=== PATIENT | female | born 1955 | race Caucasian/White ===

== ENCOUNTER 2022-08-28 08:32 | Day surgery (SDC) | payer MEDICARE, SELFPAY ==
[2022-08-20 09:47] VITALS: BMI 34.9
[2022-08-28] VITALS (13 sets, daily range): BP systolic 88–150; BP diastolic 47–78; PULSE 85–104; RESP 12–22; TEMP 36.2–36.7; O2SAT 93–100; BMI 34.8
--- NOTE | 2022-08-28 06:00 | DI.RAD.S_ITS ---
PROCEDURE: XR PELVIS 1-2V INDICATIONS: TRINI TECHNIQUE: Intra-operative view of the pelvis and hip acquired. COMPARISON: None. FINDINGS: Bones: Intraoperative devices prior to placement of arthroplasty prostheses are in expected positions. No fractures or suspicious bony lesions. Soft tissues: Overlying surgical retractors are present, along with other intraoperative changes. IMPRESSION: Intraoperative imaging obtained during right hip arthroplasty placement. Dictated by: Gisele West M.D. on 08/28/2022 at 14:00 Transcribed by: CLAUDIA on 08/28/2022 at 14:00 Approved by: Gisele West M.D. on 08/28/2022 at 16:27
[2022-08-28] MEDS: VANCOMYCIN 1,000 MG/200 ML PIGGYBACK 200 MG IV (09:05)
[2022-08-28] MEDS: ACETAMINOPHEN 325 MG TABLET 975 MG PO (09:06)
[2022-08-28] MEDS: CELECOXIB 200 MG CAPSULE PO (09:07)
[2022-08-28] MEDS: PREGABALIN 75 MG CAPSULE PO (09:07)
[2022-08-28] MEDS: LACTATED RINGERS 1,000 ML 42 ML IV ×2 (09:31→11:56)
--- NOTE | 2022-08-28 09:46 | PM.PREOP ---
Pre-operative Note COVID-19 COVID-19 status: Negative Interval Note History & Physical reviewed/Exam performed by Physician: Yes Changes to H&P: No
[2022-08-28 09:48] LABS: COVID19 -Nasal RAPID Negative (Negative)
[2022-08-28] MEDS: TRANEXAMIC ACID 1,000 MG VIAL 2000 MG INJ ×2 (10:28→12:33)
[2022-08-28] MEDS: CEFAZOLIN 2 GM/100 ML PREMIX 100 ML IV ×2 (10:28→18:04)
[2022-08-28] MEDS: HYDROCORTISONE 100 MG/2 ML VIAL IV (10:32)
--- NOTE | 2022-08-28 10:43 | SUR.OPER ---
Lateral on padded OR bed. Gel axillary roll. Arms secured on padded armboard with pillow supporting top arm. Padded hip positioner braces x4 - anterior and posterior chest and pelvis. Additional gel pad used anterior pelvis. Gel pad under bottom leg from knee to foot and secured with tape over sheet.
[2022-08-28] MEDS: BUPIVACAINE 0.25% (PF) 60 ML, EPINEPHrine 0.3 MG INJ (10:52)
[2022-08-28] MEDS: BUPIVACAINE LIPOSOME 266 MG/20 ML VIAL INJ (10:53)
[2022-08-28] MEDS: SODIUM CHLORIDE IRRIG SOLUTION 250 ML, POVIDONE-IODINE SPONGE STICKS 1 APPLIC IRR (10:55)
[2022-08-28] MEDS: EPINEPHrine 1 MG/ML IRR (11:03)
--- NOTE | 2022-08-28 13:00 | DI.RAD.S_ITS ---
PROCEDURE: XR HIP W PEL IF DONE RT 2V INDICATIONS: POST OP RT HIP TECHNIQUE: AP pelvis and lateral view of the right hip acquired. COMPARISON: [facility], [place], XR PELVIS 1-2V, 08/28/2022, 11:23. [facility] [place], [place], XR PELVIS 1 OR 2 VIEWS, 08/15/2022, 11:51. FINDINGS: Bones: Patient is status post right hip arthroplasty, with hardware components in expected positions. The hip joint appears congruent. The visualized bony structures appear intact. Prior left hip arthroplasty appears stable. Clips in the pelvis. Soft tissues: Overlying postoperative changes are noted. No suspicious soft tissue densities. IMPRESSION: Expected appearance of the right total hip arthroplasty. Dictated by: Sanjay Dobbs M.D. on 08/28/2022 at 13:59 Approved by: Sanjay Dobbs M.D. on 08/28/2022 at 14:00
[2022-08-28] MEDS: ONDANSETRON 4 MG/2 ML INJ IV ×2 (13:21→15:51)
[2022-08-28] MEDS: OXYCODONE IR 5 MG TABLET PO ×2 (13:21→16:47)
--- NOTE | 2022-08-28 13:39 | PM.OP.1 ---
Operative Date/Time/Diagnoses Date of procedure: 08/28/22 Time of procedure: 10:45 Pre-op diagnosis: Severe right hip osteoarthritis, history of prior extensive lumbar spine fusion Post-op diagnosis: same Procedure & Clinicians Procedure: Right total hip arthroplasty posterior approach Same procedure as scheduled: Yes Indications: The patient has had progressively worsening right hip pain with radiographic changes consistent with arthritis. Non-operative management has failed and the patient has requested total hip replacement. The risks, benefits and alternatives to surgery were discussed with the patient prior to proceeding. Risks discussed included, but were not limited to, failure to relieve pain, leg length discrepancy, dislocation, stiffness, infection, nerve damage, deep venous thrombosis, pulmonary embolism, stroke, coma, heart attack, permanent paralysis and , as well as the potential need for eventual revision of the prosthetic. Surgeon: Loren Tomlinson Cracker Dough Mixer: Connie Renner Anesthesia Type: General and Spinal Operative Notes Findings: Severe right hip osteoarthritis, adequate stability, soft bone Closure Type: primary Specimen(s): none sent Prosthetic devices, grafts, tissues, transplants, or devices: Tomlinson and nephew size 48 R3 cup, size 10 synergy standard offset, 32 x 48 mm neutral poly liner, 32 x -3 Oxinium head,one 6.5 mm screw Estimated Blood Loss (mL): 250 Blood products transfused: none Procedure in detail: The patient was seen in the pre-operative area, where the patient identified the right hip as the operative site and this was marked with my initials. The patient received pre-operative antibiotics and was taken to the operating room and placed on the operative table in the left lateral decubitus position after satisfactory anesthesia. A fulling mill operator out was performed. The right leg was prepared from the ankle to the iliac crest with ChloroPrep in the usual fashion and draped through sterile drapes. A PA was used during the procedure for intraoperative positioning of the leg and in order to allow adequate visualization of the leg and safe implantation of the components as well as hemostasis. The hip was approached through an approximately 20 cm incision centered over the greater trochanter and curving gently posteriorly as it went proximally. This was carried sharply to the fascia jimbo, which was divided and retracted with a self retaining retractor. The trochanteric bursa was excised with care being taken to avoid the sciatic nerve, which was identified and protected throughout the case. The short external rotators were incised and the capsulomuscular flap was raised and tagged for later repair. The hip was dislocated, and a femoral neck osteotomy performed approximately 15 mm above the lesser trochanter. Retractors were placed around the femur. The canal was opened with a box cutting osteotome, followed by a T handled reamer and a lateralizing reamer. The chili pepper broach was then used, followed by sequential broaching until there was good stability of the broach in the femur. With stress it was clear that there was not adequate stability of the size 2 broach and I felt it was better to go with Synergy technology. It was reamed with a Reamer and then sequentially broached up to a size 10. Retractors were placed to expose the acetabulum. The labrum and central soft tissues were removed. Reaming was performed initially going up in 2 mm increments, then 1 mm increments until good bite was obtained with an odd sized reamer. The cup 1 mm larger than the last reamer was then inserted using the appropriate anteversion guides. It was further stabilized with a screw. She did have pretty soft bone in her acetabulum. A trial neutral liner was placed. The broach was placed in the canal. A trial head and neck were then placed and the hip relocated and checked for leg length and stability. An intraoperative film confirmed the component position and no evidence of fracture. The patient was stable in the position of sleep, of squatting, and could be put through a range of motion with 45 degrees internal rotation without dislocation. At 90 degrees flexion, internal rotation to 70? was possible before dislocation. This was felt to be satisfactory and the appropriate components were opened, and the trials were removed. I considered doing a dual mobility liner because of her known spine fusion and chronic spine problems but her offset and leg length were better with a-3 head and she had such a small cup that her only dual mobility available would of been a 0 which was felt to be likely too much for her redding leg length and offset. The acetabular liner was impacted into position. The final stem was then impacted into the prepared femoral canal. A brief Betadine soak was performed while trialing with head options. The hip was meticulously irrigated with normal saline. Finally the femoral head was impacted onto the stem. The acetabulum was cleared of all material and the hip relocated one final time. The capsulomuscular flap was then repaired to the greater trochanter using the tag sutures. The short external rotators were repaired with a nonabsorbable suture. A deep drain was placed and brought out anteriorly. The fascia jimbo was closed with Vicryl. The subcutaneous layer was closed with barbed sutures and SteriStrips. An Aquacel Ag dressing was applied and the patient was taken to recovery having tolerated the procedure well. Complications: none Post-operative Condition: stable Disposition: Acute Care Plan for aftercare: The patient will be maintained on a standard total hip replacement protocol with weight bearing as tolerated and posterior hip precautions. The patient will receive Aspirin and sequential compression devices for DVT prophylaxis. The patient will be discharged home when safe for the home environment.
[2022-08-28] MEDS: IBUPROFEN 400 MG TABLET PO ×3 (14:03→21:18)
[2022-08-28] MEDS: ACETAMINOPHEN 325 MG TABLET 650 MG PO ×2 (14:04→20:45)
[2022-08-28] MEDS: OXYCODONE IR 10 MG TABLET PO (14:04)
[2022-08-28] MEDS: LACTATED RINGERS 1,000 ML 100 ML IV (14:05)
[2022-08-28] MEDS: GABAPENTIN 600 MG TABLET PO ×2 (14:45→21:17)
[2022-08-28] MEDS: CYCLOBENZAPRINE 10 MG TABLET PO ×2 (14:45→21:16)
--- NOTE | 2022-08-28 15:00 | PT.IIE ---
Current Diagnoses Unilateral primary osteoarthritis, right hip (08/28/22) Surgery Performed Operation Date: 08/28/22 10:45 Actual Procedures p Total Hip Arthroplasty(Right) - Loren Tomlinson MD Surgical History (Last Updated 08/20/22 @ 10:29 by Carey Glass, RN) H/O left wrist surgery H/O right wrist surgery History of fusion of lumbar spine History of hysterectomy History of total left hip replacement (2007) Hx of breast reduction, elective Hx of foot surgery Hx of removal of cyst Medical History (Last Updated 08/20/22 @ 10:36 by Carey Glass RN) Acid reflux Arthritis Asthma Behcet's syndrome Depression Diabetes Fibromyalgia Hidradenitis suppurativa HLD (hyperlipidemia) HTN (hypertension) Insomnia LAFB (left anterior fascicular block) Livedo reticularis Lumbar radiculopathy Osteoarthritis Raynaud's syndrome Renal mass Sarcoidosis Sleep apnea Physical Therapy Inpatient Evaluation/Re-Eval M1 PT/OT-IP Prior Functional Status Start: 08/28/22 16:25 Freq: NEEDED Status: Active Protocol: Document 08/28/22 15:00 AB (Rec: 08/28/22 16:53 AB [email or web address]) Medical Review Prior Functional Status Medical History Reviewed Yes Communication able to make needs known Mobility and Gait pt stated that she is modified independent with mobilities using 4WW for ambulation; has used a SPC occasionally Social History Household Members spouse Living Arrangements House Number of Floors (Floors) One Floor Number of Stairs To Enter/Railing? 4 steps wide B rails to enter Home Environment Standard Height Toilet,Walk in Shower Home Equipment Front Wheel Walker,Four Wheel Walker,Straight Cane,Shower Seat without Backrest,Hand Held Shower,Grab Bars Near Toilet,Grab Bars In Shower Additional Social History Comment has a 3x4 ft platform step to get into the her high bed M2 PT-IP Current Condition Start: 08/28/22 16:25 Freq: NEEDED Status: Active Protocol: Document 08/28/22 15:00 AB (Rec: 08/28/22 16:53 AB [id number]) Physical Therapy Current Condition Current Condition Evaluation Date 08/28/22 Treatment Diagnosis s/p R TRINI posterior approach; difficulty in walking Onset Date 08/28/22 M3 PT-IP Subjective Start: 08/28/22 16:25 Freq: NEEDED Status: Active Protocol: Document 08/28/22 15:00 AB (Rec: 08/28/22 16:53 AB [id number]) Subjective Physical Therapy Visit Type Type Initial Evaluation Visit Start Time 15:00 Visit Stop Time 15:57 Total Visit Minutes 57 Number of SLEEPER CUTTER Visits 0 Physical Therapy Visit Comments Patient Comments agreeable to do PT Therapy Pain Assessment Pain When Pain Assessed At Rest Pain Present Pain Present Pain Reported Location Right Hip Intensity 5 Scale Used Numeric (0 - 10) Pain Management Techniques Apply Cold,Distraction, Modification of Treatment,Re- positioning,Timing of Activity with Medications M4 PT-IP Mobility and Gait Start: 08/28/22 16:25 Freq: NEEDED Status: Active Protocol: Document 08/28/22 15:00 AB (Rec: 08/28/22 16:53 [email or web address]) PT-Bed Mobility Assessment Supine to Sit Supine to Sit Moderate Assistance,Maximum Assistance,1 Person Assistance Sit to Supine Sit to Supine Moderate Assistance,1 Person Assistance PT-Transfer Assessment Sit to and From Stand Sit to and from Stand Maximum Assistance,2 Person Assistance,Use of Upper Extremities Equipment Transfer Assistive Device Front Wheeled Walker Orthotic/Prosthetic Devices or Brace: No Comments Mobility Comments Educated pt and spouse regarding posterior hip precautions. BP: 120/69 O2 sat 96 to 98% at RA completed supine to sit mod to max A and max cues. c/o increase hip pain to 8/10. BP in sittin/69. completed sit to stand max A x 2 and max cues. pt still with decrease motor control on BLE with L>R. presents with R ankle eversion due to previous surgeries. Required max A x 2 for standing balance using FWW. able to take 2 steps sideways towards HOB for positioning. c/o nausea due to pain per pt and assisted back to bed. mod A for sit to supine. max A x 1-2 for bed positioning. call light and table placed within reach. spouse in room and stated that he will be staying with pt for the night. informed regarding possible caregiver training tomorrow depending on appropriateness of pt's mobility and spouse agreed. Gait Assessment Comments Gait Comments unable but able to take 2 side steps towards HOB max A x 2 using FWW PT-Balance Assessment Sitting Balance and Reactions Static Sitting Balance Ability Good Dynamic Sitting Balance Ability Good Standing Balance and Reactions Static Standing Balance Ability Poor Dynamic Standing Balance Ability Poor Device Used FWW M5 PT-IP Objective Assessments Start: 08/28/22 16:25 Freq: NEEDED Status: Active Protocol: Document 08/28/22 15:00 AB (Rec: 08/28/22 16:53 AB [email or web address]) Orientation Orientation/Cognition Level of Alertness Alert Orientation Name,Place,Situation Language Function Ability No Deficits Noted Safety Awareness Decreased Safety Awareness Memory Description Short Term Impaired Gross Range of Motion Lower Extremity ROM Assessment Within Functional Limits Strength Lower Extremity Strength Assessment Bilaterally Impaired Hip 3+/5 Knee 3+/5 Sensation Assessment Comments Sensation Comments initially stated that she can feels her LE but upon sitting/ standing stated that sensation is less and still has numbness on BLE M6 PT-IP Treatment Start: 08/28/22 16:25 Freq: NEEDED Status: Active Protocol: Document 08/28/22 15:00 AB (Rec: 08/28/22 16:53 AB [email or web address]) Physical Therapy Treatment Education Education Provided Precautions,Weight Bearing Status,Post-Op Packet,Safety M7 PT-IP Assessment and Plan Start: 08/28/22 16:25 Freq: NEEDED Status: Active Protocol: Document 08/28/22 15:00 AB (Rec: 08/28/22 16:53 AB [id number]) PT Summary Assessment and Plan Potential Rehabilitation Potential Fair Status of Condition at Evaluation Evolving Summary Impairments Pain,ROM,Strength,Balance, Coordination,Sensation,Tone, Cognition,Bed Mobility, Transfers,Gait,Activity Tolerance Assessment Summary pt s/p R TRINI posterior approach and just had surgery this morning. pt unable to ambulate at this time and requires max A x 2 for sit to stand and standing balance using FWW. pt still has decrease motor control on BLE and c/o slight numbness. informed pt and spouse regarding possible caregiver training tomorrow depending on pt's appropriateness for training. Spouse stated that he will be staying with pt for the night and agreeable to do training anytime tomorrow. will continue to assess progress. Goals Bed Mobility Goal Standby Assistance Transfer Goal Standby Assistance,Front Wheeled Walker Gait Goal Standby Assistance,Front Wheel Walker Gait Distance 150 Other Goals up/down 4 steps 1 rail SBA up/down platform step to bed using FWW SBA Days to Meet Goals 5 Frequency of Treatment Frequency Of Treatment Twice a Day Treatment Plan Physical Therapy Treatment Plan Bed Mobility Training,Transfer Training,Gait Training, Therapeutic Exercise,Balance Retraining,Post Op Education, Discharge Planning,Hot or Cold Pack,Neuromuscular Re-ed, Coordination Retraining,Manual Therapy Precautions Posterior Hip Precautions No Hip Flexion > 90 degrees,No Hip Internal Rotation,No Hip Adduction Weight Bearing Status Weight Bearing Status Weight Bear as Tolerated Allowed Weight Bearing Amount (enter % RLE WBAT or #) (%) Recommendations To Nursing Amount of Assist Needed PT/OT Assist Only Discharge Recommendations PT Discharge Recommendations Home vs SNF Transportation Needs at Discharge Private Vehicle,Wheelchair/ Cabulance
[2022-08-28] MEDS: HYDROCODONE/ACET 5/325 TABLET 1 TAB PO ×2 (16:04→21:17)
[2022-08-28] MEDS: INSULIN REGULAR 100 UNIT/ML 3 ML VIAL SUBCUT (17:10)
[2022-08-28] MEDS: DOCUSATE 100 MG CAPSULE PO (21:16)
[2022-08-28] MEDS: ASPIRIN EC 81 MG TABLET PO (21:16)
[2022-08-28] MEDS: PANTOPRAZOLE DR 40 MG TABLET PO (21:17)
[2022-08-28] MEDS: LORATADINE 10 MG TABLET PO (21:18)
[2022-08-29] MEDS: HYDROCORTISONE 100 MG/2 ML VIAL IV
[2022-08-29] MEDS: LACTATED RINGERS 1,000 ML 100 ML IV (00:13)
[2022-08-29] MEDS: OXYCODONE IR 10 MG TABLET PO ×2 (00:14→07:28)
[2022-08-29] MEDS: ACETAMINOPHEN 325 MG TABLET 650 MG PO (01:08)
[2022-08-29] MEDS: OXYCODONE IR 5 MG TABLET PO (01:08)
[2022-08-29] MEDS: CEFAZOLIN 2 GM/100 ML PREMIX 100 ML IV (02:27)
[2022-08-29] MEDS: IBUPROFEN 400 MG TABLET PO ×3 (02:28→09:29)
[2022-08-29 05:49] LABS: Hematocrit 30.1 % (36-46); Hemoglobin 10.2 g/dL (12.0-16.0)
[2022-08-29 06:02] VITALS: BP 100/45; PULSE 93; O2SAT 96
--- NOTE | 2022-08-29 06:56 | PM.DS.1 ---
History of Present Illness History of Present Illness Date Patient Seen: 08/29/22 Time Patient Seen: 06:56 Chief complaint: right TRINI Narrative: Operative Date/Time/Diagnoses Date of procedure: 08/28/22 Time of procedure: 10:45 Pre-op diagnosis: Severe right hip osteoarthritis, history of prior extensive lumbar spine fusion Post-op diagnosis: same Procedure & Clinicians Procedure: Right total hip arthroplasty posterior approach Same procedure as scheduled: Yes Indications: The patient has had progressively worsening right hip pain with radiographic changes consistent with arthritis. Non-operative management has failed and the patient has requested total hip replacement. The risks, benefits and alternatives to surgery were discussed with the patient prior to proceeding. Risks discussed included, but were not limited to, failure to relieve pain, leg length discrepancy, dislocation, stiffness, infection, nerve damage, deep venous thrombosis, pulmonary embolism, stroke, coma, heart attack, permanent paralysis and , as well as the potential need for eventual revision of the prosthetic. Surgeon: Loren Tomlinson Audio Visual Collections Coordinator: Connie Renner Anesthesia Type: General and Spinal Operative Notes Findings: Severe right hip osteoarthritis, adequate stability, soft bone Closure Type: primary Specimen(s): none sent Prosthetic devices, grafts, tissues, transplants, or devices: Tomlinson and nephew size 48 R3 cup, size 10 synergy standard offset, 32 x 48 mm neutral poly liner, 32 x -3 Oxinium head,one 6.5 mm screw Estimated Blood Loss (mL): 250 Blood products transfused: none Discharge Providers Provider Discharge Date: 08/29/22 Primary care physician: Nohemi Felix PA-C Consults: 08/28/22 06:00 Consult to Anesthesiology Routine Comment: Consulting Provider: Anesthesiologist Reason for consultation: Regional block for post operative pain control 08/28/22 13:45 Consult to Dietitian, Adult Routine Comment: Reason For Exam: diabetic and weight education Consult to Discharge Planning Routine Comment: Consult to Physical Therapy Evaluate & Treat Comment: Physician Instructions: post op TRINI protocol Discharge provider: Connie Renner PA-C Summary Hospital Course Discharge Diagnosis: Right hip osteoarthritis, s/p right total hip arthroplasty Hospital Course: Ms Arita'isamar hospital course was unremarkable. On the morning of POD# 1, she was feeling well and wanted to go home. She was eating and voiding without difficulty. She had not yet been evaluated by PT at the time of my visit. Exam Vital Signs (past 8 hours): - 08/29/22 06:02 Pulse Rate 93 H Blood Pressure 100/45 L Pulse Oximetry 96 Fraction of Inspired Oxygen 21 SaO2/FiO2 Ratio 476 Oxygen Delivery Method Room Air Oxygen Flow Rate 0 Narrative Exam Narrative: 5/5 strength in hip flexors, quadriceps, hamstrings, DF, PF, EHL on right. Sensation to light touch intact throughout RLE. Calf soft, compressible, nontender and without palpable cords or masses. CAR dressing functioning, CDI. She is diabetic and received stress doses of hydrocortisone before and after surgery d/t chronic prednisone use. Her blood glucose was monitored and she responded appropriately to SSI. Objective Labs 08/29/22 05:15 Labs: Laboratory Results - last 24 hr 08/28/22 08/29/22 08:58 05:15 Hgb 10.2 L Hct 30.1 L SARS-CoV-2 (PCR) Negative PFSH Medical History (Updated 08/20/22 @ 10:36 by Carey Glass RN) Acid reflux Arthritis Asthma Behcet's syndrome Depression Diabetes Fibromyalgia Hidradenitis suppurativa HLD (hyperlipidemia) HTN (hypertension) Insomnia LAFB (left anterior fascicular block) Livedo reticularis Lumbar radiculopathy Osteoarthritis Raynaud's syndrome Renal mass Sarcoidosis Sleep apnea Surgical History (Updated 08/29/22 @ 07:03 by Connie Renner PA-C) H/O left wrist surgery H/O right wrist surgery History of fusion of lumbar spine History of hysterectomy History of total left hip replacement (2007) Hx of breast reduction, elective Hx of foot surgery Hx of removal of cyst Social History household members: spouse Smoking Status: Never smoker alcohol intake: former Discharge Assessment & Plan Assessment and Plan Assessment: Right hip osteoarthritis, s/p right total hip arthroplasty Plan of Treatment: Discharge home after PT if PT agrees. Multimodal pain control - pt is under pain contract w/ [facility] and takes hydrocodone/APAP 5/325 four tabs/day. We will rx her #42 oxycodone for discharge and then her pain team will take over further rxs. ASA 81mg BID x 6 weeks for VTE prophylaxis. F/u as scheduled in 2 weeks. Discharge Plan Discharge Plan Patient Disposition: Home Discharge orders & Medications Discharge Orders: Discharge (Order); Ordered 08/29/22 Ordered By: Connie Renner Prescriptions: New oxycodone 5 mg Tablet 5 mg PO Q4-6H PRN (Reason: Pain, Moderate (4-6)) Qty: 42 0RF docusate sodium 100 mg Capsule 100 mg PO BID PRN (Reason: constipation) Qty: 60 1RF aspirin 81 mg Tablet,Delayed Release (Dr/Ec) 81 mg PO BID Qty: 90 0RF Continued cyclobenzaprine 10 mg Tablet 10 mg PO TID metformin 500 mg Tablet 500 mg PO DAILY prednisone 10 mg Tablet 10 mg PO DAILY gabapentin 600 mg Tablet 600 mg PO TID sulfasalazine 500 mg Tablet 1 g PO QPM Rx Instructions: give with food (meal/snack) cetirizine [Zyrtec] 10 mg Tablet 10 mg PO BID metoprolol succinate 50 mg Tablet Extended Release 24 Hr 150 mg PO BEDTIME hydrocodone-acetaminophen [[place]] 5-325 mg Tablet 1 tab PO QID sumatriptan succinate [Imitrex] 25 mg Tablet 25 mg PO Q2-4H PRN (Reason: Migraine Headache) Rx Instructions: do not exceed 8 doses per 24 hrs acetaminophen 500 mg Tablet 1,000 mg PO DAILY trazodone 150 mg Tablet 200 mg PO BEDTIME PRN (Reason: Sleep) omeprazole 20 mg Capsule,Delayed Release(Dr/Ec) 40 mg PO BEDTIME epinephrine [Epi E-Z Pen] 0.3 mg/0.3 mL Auto-Injector 0.3 mg IM Q5-15M PRN (Reason: Bee stings, strawberries) Rx Instructions: do not exceed 3 doses per episode albuterol sulfate [ProAir HFA] 90 mcg/actuation Hfa Aerosol Inhaler 2 puff INHALATION Q4-6H PRN (Reason: Shortness Of Breath) albuterol sulfate [Ventolin HFA] 90 mcg/actuation Hfa Aerosol Inhaler 2 puff INHALATION Q4-6H PRN (Reason: Shortness Of Breath) ondansetron HCl [Zofran] 8 mg Tablet 8 mg PO Q8H PRN (Reason: Nausea) Follow up/Referrals: Loren Tomlinson MD [Physician] - As previously scheduled (Follow up w/ Edie Peralta PA-C, on 09/12/2022 @ 1:30 pm at [employer] office in [place].) Young,Nohemi, PA-C [Primary Care Provider] - Diet/Activity/Treatments Diet: Diet as Tolerated Activity: Weightbearing as tolerated to right leg. Posterior hip precautions. Cold/Heat Therapy: Ice to hip as needed for pain. Skin/Wound/Dressing Care Report to your healthcare provider any signs of infection, such as:: chills, fever, night sweats, unusual drainage and unusual redness Dressing: May shower. Leave CAR dressing in place until follow up in office. When batteries in 5-7 days, may cut off battery pack and dispose of it. Leave CAR dressing on until follow up in office. No bathing or otherwise soaking incision. Call the office if the dressing becomes saturated inside. Visit Report/Discharge Packet Instructions: DI for Hip Replacement Stand Alone Forms: Patient Portal/API, Surgery Discharge Discharge Data Primary Care Provider: Nohemi Felix Attending Provider: Loren Tomlinson
[2022-08-29] MEDS: HYDROCODONE/ACET 5/325 TABLET 1 TAB PO ×2 (08:20→12:02)
[2022-08-29] MEDS: METFORMIN HCL 500 MG TABLET PO (08:20)
[2022-08-29] MEDS: CYCLOBENZAPRINE 10 MG TABLET PO (08:20)
[2022-08-29] MEDS: DOCUSATE 100 MG CAPSULE PO (08:20)
[2022-08-29] MEDS: ASPIRIN EC 81 MG TABLET PO (08:20)
[2022-08-29] MEDS: predniSONE 5 MG TABLET 10 MG PO (08:21)
[2022-08-29] MEDS: LORATADINE 10 MG TABLET PO (08:21)
[2022-08-29] MEDS: GABAPENTIN 600 MG TABLET PO (08:21)
[2022-08-29] MEDS: polyethylene glycoL 3350 17 GM POWD.PACK PO (08:21)
--- NOTE | 2022-08-29 08:22 | CM.DANOTE ---
Addendum entered by TEGAN Clark 08/29/22 11:23: ADD: Patient much improved this morning and has been cleared by TEACHING ARTIST for return home w/spouse to assist. Patient eager to return home NO needs from this CM team, home w/spouse, outpatient PT PAULINO Original Note: Initial DCP Assessment Note Pt is a 66 yo female, resident of [place], now POD#1 from right TRINI PT completed the initial eval POD0 and rec is Home VS SNF r/t patient not being able to ambulate POD0 and requiring Max Ax 2 PCP: Nohemi Felix Payer: Dameon ROSE Reviewed chart, patient planned for return home w/spouse and awaiting caregiver training today w/therapy team and spouse Francisco CM team will plan to follow closely for addtl therapy recs and will review DCP options w/patient after. If SNF is the recommendation and patient/spouse agreeable, SNF choices will be reviewed, referrals faxed and dameon ROSE auth will need to be obtained by an accepting SNF TEGAN Henao Discharge Planning/Care Management CM Discharge Assessment Start: 08/29/22 08:17 Freq: Status: Active Protocol: Document 08/29/22 08:17 PAULINO (Rec: 08/29/22 08:22 PAULINO [id number]) Discharge Planning Assessment Assigned Division [employer] Supervisor TEGAN Cox DPOA/Assigned Designee Name Francisco () [phone] Contact Information Tiffany (daughter) Advance Directives? Yes Advance Directives on File No History Provided By Patient,Medical Record Prior Living Arrangements House Household Members spouse Type of transporation used prior to Relies on Others admit Independent with ADL's Yes: Mod Indp w/ walker, needs assist for higher ADLs Is patient alert and oriented? Yes Needs Assistance With Meal Prep,Home Chores / Shopping Patient/Family Preference Home with Home Health Comment Home vs SNF per PT. Patient required Max assist POD0 Barriers to Discharge Yes Comment Home vs SNF per first PT rec. Aekaren ROSE Transportation Arrangement TBD Additional Comment TBD
[2022-08-29 08:27] VITALS: BP 106/60; PULSE 101; RESP 17; TEMP 36.2; O2SAT 99
[2022-08-29] MEDS: INSULIN REGULAR 100 UNIT/ML 3 ML VIAL SUBCUT (10:30)
--- NOTE | 2022-08-29 10:39 | DIET.CONS ---
Dietary Consultation Note Admission Date: Assessment: 66F s/p total hip replacement. RD consulted for diabetes and weight education. Spouse, Francisco, at bedside. During our consultation Bernard seemed somewhat confused and stated she felt loopy. Not entirely appropriate for education at this time. She was able to report recent HgA1c of 7.6% with home FBG ranging 124-148mg/dl. Home DM meds 500mg per day. Also reports 2-3 eating occurrences per day. Likes vegetables. Familiar with plate method. Tries to limit carb intake, ie rice portion 1/2c at meals. Since admission BG intermittently elevated with two reading in the last two days over 250mg/dl. Has also been taking prednisone which likely exacerbates hyperglycemia. Given elevated BG during admission and reported elevated FBG and hgA1c >7%, may benefit from increased medication coverage in OP. Ht: 161.29 cm Wt: 90.718 kg BMI: 34.8 Last BM: 08/27/22 (08/28/22 13:47) MNA: 10 Yevgeniy Score: 21 Diet: 08/28/22 Lunch Carbohydrate Consistent Diet Diet Modifications: Carbohydrate level: Medium (3 CHO) Reflex DM orders: Yes Nutrition Percent Meal Consumed 100% 08/28/22 18:31 Percent Meal Consumed 100% 08/28/22 18:00 Labs: Hgb 10.2 g/dL (12.0-16.0) L 08/29/22 05:15 Hct 30.1 % (36-46) L 08/29/22 05:15 Nutrition Diagnosis: Altered nutrition related lab value r/t potentially needing further nutrition therapy and medication coverage for DM aeb reported HgA1c >7% and elevated BG. Interventions: Briefl review of carb portions and plate method. Provided OP contact info for diabetes education. EER: 30-45g CHO per meal Monitoring/Evaluations: consult prn Electronically Signed by: Sabrina Cooper 08/29/22 10:39 Clinical Dietitian [address] [address]
--- NOTE | 2022-08-29 10:45 | PT.IPTN ---
Current Diagnoses Unilateral primary osteoarthritis, right hip (08/28/22) Presence of unspecified artificial hip joint (08/28/22) Surgery Performed Operation Date: 08/28/22 10:45 Actual Procedures p Total Hip Arthroplasty(Right) - Loren Tomlinson MD Physical Therapy Treatment Note M2 PT-IP Current Condition Start: 08/28/22 16:25 Freq: NEEDED Status: Active Protocol: Document 08/28/22 15:00 AB (Rec: 08/28/22 16:53 AB [id number]) Physical Therapy Current Condition Current Condition Evaluation Date 08/28/22 Treatment Diagnosis s/p R TRINI posterior approach; difficulty in walking Onset Date 08/28/22 M3 PT-IP Subjective Start: 08/28/22 16:25 Freq: NEEDED Status: Active Protocol: Document 08/29/22 11:16 TS (Rec: 08/29/22 11:33 TS [id number]) Subjective Physical Therapy Visit Type Type Treatment Note Visit Start Time 10:45 Visit Stop Time 11:11 Total Visit Minutes 26 Notes Spouse in room. Number of TINNER [employer] Visits 1 Physical Therapy Visit Comments Patient Comments Pt reports feeling better this morning and her pain has decreased. Would like to go home today with spouse. Therapy Pain Assessment Pain When Pain Assessed At Rest Pain Present Pain Present Pain Reported Location Right Hip Intensity 2 Scale Used Numeric (0 - 10) Pain Behaviors Facial Grimacing Pain Management Techniques Apply Cold,Distraction, Modification of Treatment,Re- positioning,Timing of Activity with Medications M4 PT-IP Mobility and Gait Start: 08/28/22 16:25 Freq: NEEDED Status: Active Protocol: Document 08/29/22 11:16 TS (Rec: 08/29/22 11:33 TS [id number]) PT-Bed Mobility Assessment Supine to Sit Supine to Sit Standby Assistance Sit to Supine Sit to Supine Standby Assistance Scooting Scooting to Edge of Bed Standby Assistance Scooting Up and Down in Bed Standby Assistance PT-Transfer Assessment Sit to and From Stand Sit to and from Stand Standby Assistance Equipment Transfer Assistive Device Front Wheeled Walker Orthotic/Prosthetic Devices or Brace: No Comments Mobility Comments Pt recalled 0/3 precautions pre-treatment, caregiver recalled 3/3. Supine to sit HOB flat SBA with BUE support on bed. Scooted to EOB SBA with increased effort due to height of bed, provided cue for hip flexion precaution. Sit to stand x1 SBA with cues for scooting forward and BUE support. Ambulated in hallway ~200' SBA, denied any dizziness but some SOB, no buckling or LOB. Stairs x3 SBA with BUE support. X1 platform step with FWW CGA for posterior LOB x1 descending. Sit to supine SBA from flat bed, demonstrated good carryover of hip precautions. Pt was left in bed with call light nearby, spouse in room. Gait Assessment Gait Gait Assistance Required: Standby Assistance Distance (Feet) 200 Able to Maintain Weight Bearing Status Yes During Gait Assistive Devices Assistive Device Gait Belt,Front Wheeled Walker Orthotic/Prosthetic Devices or Brace: No Gait Deviations General Gait Pattern Antalgic,Decreased Stride Length,Decreased Feet Clearance,Step-to Gait Factors Limiting Gait Function Factors Limiting Gait Function Decreased Activity Tolerance, Decreased Strength,Limited Range of Motion,Pain,Poor Balance Comments Gait Comments See mobility comments. Stair Climbing Assessment Evaluation Level of Assist On Stairs Standby Assistance,Contact Guard Assistance Devices Stair Climbing Assistive Devices Front Wheel Walker Technique/Endurance Stair Climbing Direction Ascend and Descend Stair Climbing Technique Step to Step Number of Steps Climbed 4 Comments Stair Climbing Comments X1 with FWW on platform step CGA for psoterior LOB. PT-Balance Assessment Sitting Balance and Reactions Static Sitting Balance Ability Good Dynamic Sitting Balance Ability Good Standing Balance and Reactions Static Standing Balance Ability Good Dynamic Standing Balance Ability Fair Device Used FWW M5 PT-IP Objective Assessments Start: 08/28/22 16:25 Freq: NEEDED Status: Active Protocol: Document 08/28/22 15:00 AB (Rec: 08/28/22 16:53 AB [id number]) Orientation Orientation/Cognition Level of Alertness Alert Orientation Name,Place,Situation Language Function Ability No Deficits Noted Safety Awareness Decreased Safety Awareness Memory Description Short Term Impaired Gross Range of Motion Lower Extremity ROM Assessment Within Functional Limits Strength Lower Extremity Strength Assessment Bilaterally Impaired Hip 3+/5 Knee 3+/5 Sensation Assessment Comments Sensation Comments initially stated that she can feels her LE but upon sitting/ standing stated that sensation is less and still has numbness on BLE M6 PT-IP Treatment Start: 08/28/22 16:25 Freq: NEEDED Status: Active Protocol: Document 08/29/22 11:16 TS (Rec: 08/29/22 11:33 TS [id number]) Physical Therapy Treatment Education Education Provided Precautions,Weight Bearing Status,Post-Op Packet,Safety Other Treatments Other Treatment Performed Educated pt on importance of bed exercises, frequency and intensity. M7 PT-IP Assessment and Plan Start: 08/28/22 16:25 Freq: NEEDED Status: Active Protocol: Document 08/29/22 11:16 TS (Rec: 08/29/22 11:33 TS [id number]) PT Summary Assessment and Plan Potential Rehabilitation Potential Good Status of Condition at Evaluation Evolving Summary Impairments Pain,ROM,Strength,Balance, Coordination,Sensation,Tone, Cognition,Bed Mobility, Transfers,Gait,Activity Tolerance Assessment Summary Pt is progressing well in her mobility this session. She was SBA for supine to sit from flat bed, sit to stands and gait. She increased her ambulation distance to ~200' and performed stairs x3 SBA with handrail assist. She had x1 posterior LOB with platform step with FWW requiring CGA. She was unable to recall hip precautions 0/3, caregiver/ spouse recalled 3/3 prior to session, she required some cueing for decreased hip flexion throught treatment. PT is recommending pt return home with spouse. Spouse is very supportive and can provide her any asssitance she may need. Goals Bed Mobility Goal Standby Assistance Transfer Goal Standby Assistance,Front Wheeled Walker Gait Goal Standby Assistance,Front Wheel Walker Gait Distance 150 Other Goals up/down 4 steps 1 rail SBA up/down platform step to bed using FWW SBA Days to Meet Goals 5 Frequency of Treatment Frequency Of Treatment Twice a Day Treatment Plan Physical Therapy Treatment Plan Bed Mobility Training,Transfer Training,Gait Training, Therapeutic Exercise,Balance Retraining,Post Op Education, Discharge Planning,Hot or Cold Pack,Neuromuscular Re-ed, Coordination Retraining,Manual Therapy Precautions Posterior Hip Precautions No Hip Flexion > 90 degrees,No Hip Internal Rotation,No Hip Adduction Weight Bearing Status Weight Bearing Status Weight Bear as Tolerated Recommendations To Nursing Amount of Assist Needed Standby Assistance,1 Person Assist Discharge Recommendations PT Discharge Recommendations Home with Assistance Transportation Needs at Discharge Private Vehicle
== END 2022-08-29 12:18 | disposition home or self-care (01) ==
LOC: OR 08:33 → AC 08:35
PROVIDERS: PCP Physician Assistant Medical; Referring Provider Orthopaedic Surgery; Visit Provider Orthopaedic Surgery
PROC: 0SR90JZ Replacement of Right Hip Joint with Synthetic Substitute, Open Approach (ICD-10-PCS; CPT 27130; principal; 2022-08-28 10:45)
DX: M16.11 Unilateral primary osteoarthritis, right hip (principal); M06.9 Rheumatoid arthritis, unspecified; Z20.822 Contact with and (suspected) exposure to COVID-19
CPT/HCPCS: 27130; 36415; 72170; 73502; 82962; 85014; 85018; 87635; 97116; 97162; 97530; C1776; C9803; C9290; J0171; J0330; J0690; J1720; J2405; J2704; J3010

== ENCOUNTER 2023-11-25 15:08 | Emergency (ER) | payer MEDICARE, SELFPAY ==
[2022-08-28 13:47] VITALS: BMI 34.8
[2023-11-25] VITALS (19 sets, daily range): BP systolic 119–183; BP diastolic 60–108; PULSE 62–82; RESP 10–28; TEMP 36.5; O2SAT 91–100; BMI 33.6
--- NOTE | 2023-11-25 | DI.RAD.S_ITS ---
PROCEDURE: XR PELVIS 1-2V INDICATIONS: POST REDUCTION RIGHT HIP TECHNIQUE: 1 view(s) of the pelvis acquired. COMPARISON: [facility], CR, XR PELVIS 1-2V, 08/28/2022, 11:23. [facility], CR, XR HIP W PEL IF DONE RT 2V, 11/25/2023, 15:11. FINDINGS: Bones: No fractures or dislocations. No suspicious bony lesions. Bilateral hip arthroplasties. There has been interval reduction previously dislocated right hip. There is good anatomic alignment. No definitive fractures identified. Soft tissues: Visualized bowel gas pattern is normal. No suspicious soft tissue calcifications. IMPRESSION: Interval reduction with good anatomic alignment of right hip dislocation. Dictated by: Jaky Munoz M.D. on 11/25/2023 at 19:53 Approved by: Jaky Munoz M.D. on 11/25/2023 at 19:53
--- NOTE | 2023-11-25 15:10 | DI.RAD.S_ITS ---
PROCEDURE: XR HIP W PEL IF DONE RT 2V INDICATIONS: fall, right hip pain, + rotation TECHNIQUE: AP pelvis and lateral view of the hip acquired. COMPARISON: [facility], CR, XR HIP W PEL IF DONE RT 2V, 08/28/2022, 12:57. FINDINGS: Bones: Patient is status post right hip arthroplasty. The femoral component is dislocated superiorly relative to the acetabular component. The visualized bony structures appear intact. Lumbosacral fusion hardware. Soft tissues: Overlying postoperative changes are noted. No suspicious soft tissue densities. IMPRESSION: Right hip arthroplasty dislocation. Dictated by: Gisele West M.D. on 11/25/2023 at 16:43 Approved by: Gisele West M.D. on 11/25/2023 at 16:43
[2023-11-25] MEDS: ONDANSETRON 4 MG/2 ML INJ IV (15:30)
[2023-11-25] MEDS: HYDROMORPHONE 1 MG INJ IV ×2 (15:30→16:23)
--- NOTE | 2023-11-25 16:43 | PC.NURSE ---
patient has sleep apnea and her o2 drops intermittently. she was placed on 2l nc for an o2 sat of 97%
[2023-11-25 16:45] LABS: Add Manual Diff / Slide Review NO; Basophils Absolute Auto 100 /uL (0-100); Basophils Percent Auto 1.1 % (0-2); Eosinophils Absolute Auto 100 /uL (0-450); Eosinophils Percent Auto 2.7 % (2-4); Hematocrit 36.9 % (36-46); Hemoglobin 12.2 g/dL (12.0-16.0); Lymphocytes Absolute Auto 1900 /uL (1100-4500); Lymphocytes Percent Auto 37.9 % (25-40); Mean Corpuscular Hemoglobin 32.1 PG (26-34); Mean Corpuscular Volume 97.2 fL (80-100); Monocytes Absolute Auto 500 /uL (0-900); Monocytes Percent Auto 10.6 % (3-14); Neutrophils Absolute Auto 2400 /uL (1500-7000); Neutrophils Percent Auto 47.7 % (50-75); Platelet Count 128 X10^3/uL (150-400); Red Cell Distribution Width 15.4 % (11.6-14.8)
[2023-11-25 16:55] LABS: Alanine Aminotransferase 18 IU/L (<35); Albumin 3.8 g/dL (3.5-5.0); Albumin Globulin Ratio 1.5 (1.0-2.8); Alkaline Phosphatase 66 U/L (38-126); Aspartate Aminotransferase 28 IU/L (14-36); BUN Creatinine Ratio 13.7 (6-22); Bilirubin Total 0.4 mg/dL (0.2-1.3); Blood Urea Nitrogen 14 mg/dL (7-17); Calcium 8.9 mg/dL (8.4-10.2); Carbon Dioxide 23 mmol/L (22-32); Chloride 105 mmol/L (98-107); Estimated Glomerular Filt Rate > 60 mL/min (>60); Globulin 2.6 g/dL (1.7-4.1); Glucose 117 mg/dL (80-110); HEMOLYSIS < 15 (0-50); Lipase 73 U/L (23-300); Potassium 4.5 mmol/L (3.4-5.1); Sodium 135 mmol/L (137-145); Total Protein 6.4 g/dL (6.3-8.2)
[2023-11-25] MEDS: ACETAMINOPHEN IV 1,000 MG/100 ML VIAL 400 MG IV (18:39)
[2023-11-25] MEDS: propofoL 200 MG/20 ML VIAL 85 MG IV (18:45)
--- NOTE | 2023-11-25 19:12 | PC.NURSE ---
Patient required an oral airway and assisted ventilation with an ambu bag. She has KANDACE. RT and MD were made aware and had OPA in room and ready along with ambu bag.
--- NOTE | 2023-11-25 19:19 | PC.NURSE ---
Patient has been removed from OPA and ambu bag. She is responding to questions from RT appropriately. She is drowsy but alert to verbal.
--- NOTE | 2023-11-25 19:29 | ED_ITS ---
HPI - Fall General Chief Complaint: Fall Stated Complaint: R Hip Pain/Fall Time Seen by Provider: 11/25/23 18:36 Source: patient and EMS Mode of arrival: EMS History of Present Illness HPI Narrative: Patient is a 68-year-old female history of sarcoidosis morbid obesity presenting today with ground level fall and right hip pain. She reports that she was going upstairs on a deck when she tripped and fell landing directly on her right hip. She denies hitting her head or losing consciousness. Not on antiplatelet or anticoagulation medication. X-ray confirms a right dislocated hip. Patient has received multiple pain medications and has been here for a couple of hours slightly sleepy but able to answer questions and respond. Related Data Home Medications Medication Instructions Recorded Confirmed acetaminophen 500 mg tablet 1,000 mg PO DAILY 08/20/22 08/28/22 albuterol sulfate 90 mcg/actuation 2 puff inhalation Q4-6H PRN 08/20/22 08/28/22 aerosol inhaler (ProAir HFA) Shortness Of Breath albuterol sulfate 90 mcg/actuation 2 puff inhalation Q4-6H PRN 08/20/22 08/28/22 aerosol inhaler (Ventolin HFA) Shortness Of Breath cetirizine 10 mg tablet (Zyrtec) 10 mg PO BID 08/20/22 08/28/22 cyclobenzaprine 10 mg tablet 10 mg PO TID 08/20/22 08/28/22 epinephrine 0.3 mg/0.3 mL 0.3 mg IM Q5-15M PRN Bee stings, 08/20/22 08/28/22 injection, auto-injector strawberries gabapentin 600 mg tablet 600 mg PO TID 08/20/22 08/28/22 hydrocodone 5 mg-acetaminophen 325 1 tab PO QID 08/20/22 08/28/22 mg tablet metformin 500 mg tablet 500 mg PO DAILY 08/20/22 08/28/22 metoprolol succinate 50 mg 150 mg PO BEDTIME 08/20/22 08/28/22 tablet,extended release 24 hr omeprazole 20 mg capsule,delayed 40 mg PO BEDTIME 08/20/22 08/28/22 release prednisone 10 mg tablet 10 mg PO DAILY 08/20/22 08/28/22 sulfasalazine 500 mg tablet 1 g PO QPM 08/20/22 08/28/22 sumatriptan succinate 25 mg tablet 25 mg PO Q2-4H PRN Migraine 08/20/22 08/28/22 (Imitrex) Headache trazodone 150 mg tablet 200 mg PO BEDTIME PRN Sleep 08/20/22 08/28/22 ondansetron HCl 8 mg tablet 8 mg PO Q8H PRN Nausea 08/28/22 08/28/22 Previous Rx's Medication Instructions Recorded aspirin 81 mg tablet,delayed 81 mg PO BID #90 tabs 08/29/22 release docusate sodium 100 mg capsule 100 mg PO BID PRN constipation #60 08/29/22 caps oxycodone 5 mg tablet 5 mg PO Q4-6H PRN Pain, Moderate 08/29/22 (4-6) #42 tabs Allergies Allergy/AdvReac Type Severity Reaction Status Date / Time bee venom protein (honey bee) Allergy Severe Anaphylaxis Verified 11/25/23 15:21 minocycline Allergy Severe Rash, Verified 11/25/23 15:21 itching strawberry Allergy Severe Anaphylaxis Verified 11/25/23 15:21 adhesive tape Allergy Intermediate Rash Verified 11/25/23 15:21 morphine AdvReac Severe Hallucinating, Verified 11/25/23 15:21 nightmares Sutures AdvReac Severe My body Verified 11/25/23 15:21 rejects them All cillins Allergy Severe Head to Uncoded 08/28/22 09:23 toe rash, itching that won't quit Patient History Medical History Acid reflux Diabetes Raynaud's syndrome Livedo reticularis Hidradenitis suppurativa Insomnia Depression HLD (hyperlipidemia) Lumbar radiculopathy Renal mass Fibromyalgia Sleep apnea HTN (hypertension) Asthma Osteoarthritis Arthritis Sarcoidosis Behcet's syndrome LAFB (left anterior fascicular block) Surgical History H/O right wrist surgery Hx of foot surgery Hx of breast reduction, elective History of fusion of lumbar spine History of total left hip replacement (2007) Hx of removal of cyst H/O left wrist surgery History of hysterectomy Social History household members: spouse Smoking Status: Never smoker alcohol intake: former Smoking Status: Never smoker alcohol intake frequency: 0-2 drinks per day Substance Use Type: does not use Exam Initial Vital Signs Initial Vital Signs: Vital Signs Temperature 97.7 F 11/25/23 15:18 Pulse Rate 78 11/25/23 15:18 Respiratory Rate 18 11/25/23 15:18 Blood Pressure 132/65 11/25/23 15:18 Pulse Oximetry 96 11/25/23 15:18 Oxygen Delivery Method Room Air 11/25/23 15:18 GENERAL: Alert 68-year-old female HEENT: Head atraumatic,EOMI, pupils reactive, face symmetric, moist mucous membranes CARDIOVASCULAR: Regular rate and rhythm without murmurs, rubs or gallops. RESPIRATORY: Breath sounds equal bilaterally, no wheezes rales or rhonchi. ABDOMEN: Soft, nontender. Normoactive bowel sounds all 4 quadrants. No guarding or rebound. : No CVA tenderness EXTREMITIES: Normal range of motion, no clubbing or edema. Neurovascularly intact Right hip tender shortened distal pedal pulse intact NEUROLOGICAL: Alert and oriented x4 SKIN: Warm, dry, no laceration, no petechiae, no rashes or lesions. Procedures Orthopedic Joint Reduction Joint #1: Side: right Joint Reduction Location: hip Technique used: traction/counter-traction and direct manipulation Post-reduction neuro exam: intact Post-reduction vascular: intact Post Reduction X-Ray Obtained: Yes Post Reduction X-Ray Results: reduced Splint Applied: Yes Patient Tolerated Procedure: Well and No complications Orthopedic Splinting/Casting Injury #1: Side: right Lower Extremity Immobilizer: knee immobilizer Post splinting neuro exam: intact Post splinting vascular exam: intact Procedural Sedation Consent signed: Yes Time out performed: Yes Indication: fracture/dislocation reduction ASA Class: III Mallampati Airway Classification: Class III IV Propofol dose (mg): 85 Intraservice time/total sedation time (min): 18 ED Sedation Level: Moderate (Concious) Patient Tolerated Procedure: Well Complications: hypoventilation Interventions: Airway repositioned, Assist by BVM, Oxygen applied and Other (oral airway) Course Orders Ordered: Discontinued Medications Hydromorphone HCl (Hydromorphone 1 Mg Inj) 1 mg IV NOW ONE Stop: 11/25/23 15:21 Last Admin: 11/25/23 15:30 Dose: 1 mg Documented By: LIGIA Hydromorphone HCl (Hydromorphone 1 Mg Inj) 1 mg IV NOW ONE Stop: 11/25/23 16:21 Last Admin: 11/25/23 16:23 Dose: 1 mg Documented By: NAYE Acetaminophen (Ofirmev) 1,000 mg in 100 mls @ 400 mls/hr IV NOW ONE Stop: 11/25/23 18:50 Last Infusion: 11/25/23 18:59 Dose: Infused Documented By: Admin: 11/25/23 18:39 Dose: 400 mls/hr Documented By: NAYE Ondansetron HCl (Ondansetron 4 Mg/2 Ml Inj) 4 mg IV NOW PRN PRN Reason: Nausea And Vomiting Last Admin: 11/25/23 15:30 Dose: 4 mg Documented By: LIGIA Ondansetron HCl (Ondansetron 4 Mg Odt) 4 mg PO NOW PRN PRN Reason: Nausea And Vomiting Propofol (Propofol 200 Mg/20 Ml Vial) 85 mg 1 mg/kg (85 mg) IV NOW ONE Stop: 11/25/23 18:37 Last Admin: 11/25/23 18:45 Dose: 85 mg Documented By: NAYE Vital Signs Vital signs: Vital Signs - 8 hr 11/25/23 20:07 Pulse Rate 62 Respiratory Rate 14 Blood Pressure 119/60 Pulse Oximetry 100 Oxygen Delivery Method Room Air MDM - Fall Lab Data 11/25/23 16:10 11/25/23 16:10 Labs: Lab Results 11/25/23 Range/Units 16:10 WBC 5.0 (4.5-11.0) X10^3/uL RBC 3.80 L (4.0-5.2) X10^6/uL Hgb 12.2 (12.0-16.0) g/dL Hct 36.9 (36-46) % MCV 97.2 (80-100) fL MCH 32.1 (26-34) PG MCHC 33.0 (30-36) % RDW 15.4 H (11.6-14.8) % Plt Count 128 L (150-400) X10^3/uL Neut % (Auto) 47.7 L (50-75) % Lymph % (Auto) 37.9 (25-40) % Frederick % (Auto) 10.6 (3-14) % Eos % (Auto) 2.7 (2-4) % Baso % (Auto) 1.1 (0-2) % Neut # (Auto) 2400 (8964-5038) /uL Lymph # (Auto) 1900 (4803-8066) /uL Frederick # (Auto) 500 (0-900) /uL Eos # (Auto) 100 (0-450) /uL Baso # (Auto) 100 (0-100) /uL Sodium 135 L (137-145) mmol/L Potassium 4.5 (3.4-5.1) mmol/L Chloride 105 (98-107) mmol/L Carbon Dioxide 23 (22-32) mmol/L BUN 14 (7-17) mg/dL Creatinine 1.02 (0.52-1.04) mg/dL Estimated GFR > 60 (>60) mL/min BUN/Creatinine Ratio 13.7 (6-22) Glucose 117 H (80-110) mg/dL Calcium 8.9 (8.4-10.2) mg/dL Total Bilirubin 0.4 (0.2-1.3) mg/dL AST 28 (14-36) IU/L ALT 18 (<35) IU/L Alkaline Phosphatase 66 (38-126) U/L Total Protein 6.4 (6.3-8.2) g/dL Albumin 3.8 (3.5-5.0) g/dL Globulin 2.6 (1.7-4.1) g/dL Albumin/Globulin Ratio 1.5 (1.0-2.8) Lipase 73 (23-300) U/L Point of Care Testing Test Results Not applicable Imaging Data Extremity x-ray #1: Radiologist's Impression: PROCEDURE: XR PELVIS 1-2V INDICATIONS: POST REDUCTION RIGHT HIP TECHNIQUE: 1 view(s) of the pelvis acquired. COMPARISON: [facility], CR, XR PELVIS 1-2V, 08/28/2022, 11:23. [facility], CR, XR HIP W PEL IF DONE RT 2V, 11/25/2023, 15:11. FINDINGS: Bones: No fractures or dislocations. No suspicious bony lesions. Bilateral hip arthroplasties. There has been interval reduction previously dislocated right hip. There is good anatomic alignment. No definitive fractures identified. Soft tissues: Visualized bowel gas pattern is normal. No suspicious soft tissue calcifications. IMPRESSION: Interval reduction with good anatomic alignment of right hip dislocation. Dictated by: Jaky Munoz M.D. on 11/25/2023 at 19:53 Extremity x-ray #2: Radiologist's Impression: PROCEDURE: XR HIP W PEL IF DONE RT 2V INDICATIONS: fall, right hip pain, + rotation TECHNIQUE: AP pelvis and lateral view of the hip acquired. COMPARISON: [facility], , XR HIP W PEL IF DONE RT 2V, 08/28/2022, 12:57. FINDINGS: Bones: Patient is status post right hip arthroplasty. The femoral component is dislocated superiorly relative to the acetabular component. The visualized bony structures appear intact. Lumbosacral fusion hardware. Soft tissues: Overlying postoperative changes are noted. No suspicious soft tissue densities. IMPRESSION: Right hip arthroplasty dislocation. Dictated by: Gisele West M.D. on 11/25/2023 at 16:43 MDM Narrative Medical decision making narrative: Patient is 68-year-old female presents today with right hip pain after trip and fall. No head injury not on anticoagulation or antiplatelet medication. She has an isolated right hip dislocation neurovascularly intact. Blood work has been reviewed WBC 5.0, hemoglobin 12.2 hematocrit 36 point platelets 128, sodium 135, potassium 4.5, chloride 105, carbon dioxide 23, BUN 4 glucose 117 Imaging reviewed right dislocated hip with reduction Patient waited a number of hours before we were able to reduce the hip due to volume emergency department. However once we got the procedure was very easy to get back in. She was placed in a knee immobilizer given instructions about restrictive movements instructed her to sleep with her immobilizer on. I do think this is a mechanical trip and fall blood work has been reviewed she has no other cause for her to fall. She is feeling much better after reduction. She reports that she is Vicodin at home if needed. Discharge Plan Departure Patient Disposition: Home Clinical Impression: Dislocation of hip, right, closed Instructions: DI for Hip Dislocation -- Adult Activity Restrictions/Additional Instructions: *You have been diagnosed with right hip dislocation *What to do: Wear knee brace to help prevent from going into positions of dislocation If the doctor gave you a sedative: You were given propofol and multiple pain medications For 24 hours, don't do anything that requires attention to detail. This includes going to work, making important decisions, or signing any legal documents. It takes time for the medicine's effects to completely wear off. For your safety, do not drive or operate any machinery that could be dangerous. Wait until the medicine wears off and you can think clearly and react easily. Your doctor will give you safety precautions to keep your hip centered in its socket during the healing period. Be sure to follow these precautions. Keep your knees and toes pointed forward when you sit in a chair, walk, or stand. Do not sit with your legs crossed. Do not bend at the waist more than 90?. Be careful when leaning or when moving in bed to keep your legs as straight ahead as possible. *Continue to take medications as directed *Follow up with your primary care provider in 2-3 days or call [phone] *Return to ER if you should have increasing pain, recurrent dislocations [or] any new, worsening or concerning symptoms Prescriptions: No Action cyclobenzaprine 10 mg Tablet 10 mg PO TID metformin 500 mg Tablet 500 mg PO DAILY prednisone 10 mg Tablet 10 mg PO DAILY gabapentin 600 mg Tablet 600 mg PO TID sulfasalazine 500 mg Tablet 1 g PO QPM Rx Instructions: give with food (meal/snack) cetirizine [Zyrtec] 10 mg Tablet 10 mg PO BID metoprolol succinate 50 mg Tablet Extended Release 24 Hr 150 mg PO BEDTIME hydrocodone-acetaminophen 5-325 mg Tablet 1 tab PO QID sumatriptan succinate [Imitrex] 25 mg Tablet 25 mg PO Q2-4H PRN (Reason: Migraine Headache) Rx Instructions: do not exceed 8 doses per 24 hrs acetaminophen 500 mg Tablet 1,000 mg PO DAILY trazodone 150 mg Tablet 200 mg PO BEDTIME PRN (Reason: Sleep) omeprazole 20 mg Capsule,Delayed Release(Dr/Ec) 40 mg PO BEDTIME epinephrine 0.3 mg/0.3 mL Auto-Injector 0.3 mg IM Q5-15M PRN (Reason: Bee stings, strawberries) Rx Instructions: do not exceed 3 doses per episode albuterol sulfate [ProAir HFA] 90 mcg/actuation Hfa Aerosol Inhaler 2 puff INHALATION Q4-6H PRN (Reason: Shortness Of Breath) albuterol sulfate [Ventolin HFA] 90 mcg/actuation Hfa Aerosol Inhaler 2 puff INHALATION Q4-6H PRN (Reason: Shortness Of Breath) ondansetron HCl 8 mg Tablet 8 mg PO Q8H PRN (Reason: Nausea) aspirin 81 mg Tablet,Delayed Release (Dr/Ec) 81 mg PO BID Qty: 90 0RF docusate sodium 100 mg Capsule 100 mg PO BID PRN (Reason: constipation) Qty: 60 1RF oxycodone 5 mg Tablet 5 mg PO Q4-6H PRN (Reason: Pain, Moderate (4-6)) Qty: 42 0RF Referrals: Nohemi Felix PA-C [Primary Care Provider] - Stand Alone Forms: Patient Portal/API
== END 2023-11-25 20:09 | disposition home or self-care (01) ==
PROVIDERS: Emergency Medicine; Emergency Provider Emergency Medicine; PCP Physician Assistant Medical
DX: S73.004A Unspecified dislocation of right hip, initial encounter (principal); W18.30XA Fall on same level, unspecified, initial encounter
CPT/HCPCS: 27265; 36415; 72170; 73502; 80053; 83690; 85025; 99152; 99284; J0136; J1170; J2405; J2704